=== PATIENT | female | born 1970 | race Caucasian/White ===

== ENCOUNTER → 2024-06-10 06:23 | Day surgery (SDC) | payer BC, SELFPAY | LOC: GI 06:23 | PROVIDERS: ATTENDING PHYSICIAN Internal Medicine Gastroenterology | DX: Z12.11 Encounter for screening for malignant neoplasm of colon (principal); D12.4 Benign neoplasm of descending colon; K63.5 Polyp of colon; K57.30 Diverticulosis of large intestine without perforation or abscess without bleeding; K64.8 Other hemorrhoids | CPT/HCPCS: 45385; 88305 ==

== ENCOUNTER 2025-01-10 14:24 | Day surgery (SDC) | payer BC, SELFPAY ==
[2025-01-10] VITALS (13 sets, daily range): BP systolic 5–125; BP diastolic 43–76; BMI 30.8
--- NOTE | 2025-01-10 09:22 | ED.GENMED ---
History of Present Illness
General
Chief Complaint: Abdominal Pain
Source: patient
Exam Limitations: none
Time Seen by Provider: 01/10/25 08:58
History of Present Illness
History of Present Illness:
54yoF with a history of hyperlipidemia and hypothyroidism presenting for evaluation of abdominal pain. Patient reports pain in her right lower quadrant for the past 4 days. Pain is described as a cramping sensation. She initially thought it was
gas pain although pain has been gradually worsening. The pain started to radiate to the right lower back today which prompted her to come to the ED. She has not taken anything [id number] for her symptoms. No history of similar pains in the
past. She also reports some dizziness with standing. No fevers, chills, dysuria, diarrhea, nausea, vomiting, chest pain, shortness of breath. Last bowel movement was about 3 days ago. No prior abdominal surgeries.
Phy Exam
General Physical Exam
General Presentation: well appearing and no apparent distress
General age: appears stated age
General Skin: warm and dry
General Habitus: normal
General Mental: alert
ENT Exam
ENT Exam: normocephalic
Cardiovascular Exam
Cardiovascular Exam: regular rate/rhythm
Pulmonary Exam
Pulmonary Exam: lungs clear, no respiratory distress, no rales, no crackles, no rhonchi and no wheezing
Gastrointestinal Exam
Gastrointestinal Exam: soft, non distended and other (+Focal tenderness in RLQ with rebound tenderness. Abdomen soft, non-distended. )
Neurological Exam
Neurological Exam: alert
Ary Coma Scale
Eye Opening: Spontaneous
Verbal Response: Oriented
Motor Response: Obeys Commands
GCS Total Score: 15
Skin Exam
Skin Exam: normal color and warm/dry
Psychiatric Exam
Psychiatric Exam: normal mood/affect
Course
Orders/Labs/Results
Orders:
Orders
01/10/25 09:21
0.9% Sodium Chloride 1000 ml [Nss] 1,000 ml IV BOLUS
01/10/25 09:22
CT Abd/pelvis W Iv Cont Urgent
Comment:
Reason For Exam: RLQ pain
01/10/25 09:31
Complete Blood Count/With Diff Urgent
Comprehensive Metabolic Panel Urgent
Lipase Urgent
01/10/25 10:01
Urinalysis Reflex To Culture Urgent
Date Specimen was Collected: 01/10/25
Time Specimen was Collected: 09:58
01/10/25 11:59
HYDROmorphone [Dilaudid] 0.25 mg IV PACU-Q5MPRN PRN
HYDROmorphone [Dilaudid] 0.5 mg IV PACU-Q5MPRN PRN
Ondansetron Injectable [Zofran] 4 mg IV PACU-ONCEPRN PRN
Prochlorperazine [Compazine] 5 mg IV PACU-ONCEPRN PRN
Notify MD As Directed
Notify physician if: for SDS patients with known or suspected sleep obstructive sleep apnea, monitor in the
PACU.
Notify MD for any apneic/desaturation episodes
O2 Therapy [RESP] Urgent
Titrate/Wean O2 to maintain O2 sat greater than (%): 92
Special Instructions: -Provide supplemental oxygen to achieve O2 sat of 92% or greater.
-After 15 min, may wean O2 and discontinue if patient is able to maintain O2 sat of 92%
or greater during recovery period.
If patient is a discharge home, without oxygen therapy, notify anestheiologist if
unable to maintain O2 SAT of 92% or greater on room air for MD clearance.
01/10/25 12:00
CefTRIAXone [Rocephin] 2,000 mg IV NOW STA
MetroNIDAZOLE 500 MG/100 ML [Flagyl 500 mg] 100 ml IV NOW
Normosol (Mult Electrolytes) [Normosol-R/Plasmalyte-A] 1,000 ml IV PER PROTOCOL
Piperacillin/Tazo 3.375 Gram [Zosyn] 3.375 gram in 50 ml IV Q6H
01/10/25 13:50
Bupivacaine 0.25%Pf/Epinephrin [Sensorcaine-Epi 0.25%-0.0005] 30 ml .ROUTE .STK-MED ONE
01/10/25 13:55
Fentanyl Citrate/Pf [Sublimaze] 100 mcg .ROUTE .STK-MED ONE
Lidocaine HCl/Pf [Xylocaine-Mpf 1% Vial] 50 mg .ROUTE .STK-MED ONE
Midazolam HCl [Versed] 2 mg .ROUTE .STK-MED ONE
Propofol [Diprivan] 20 ml .ROUTE .STK-MED
Rocuronium [place] [Rocuronium] 50 mg .ROUTE .STK-MED ONE
01/10/25 13:56
Dexamethasone Sod Phosphate [Decadron] 20 mg .ROUTE .STK-MED ONE
Ondansetron Injectable [Zofran] 4 mg .ROUTE .STK-MED ONE
Abnormal Lab Results
01/10/25
09:31
RBC 4.10 L 10^6/uL
(4.20-5.40)
MCH 31.7 H pg
(27.0-31.0)
Lymphocytes % 17.2 L %
(20.5-51.1)
01/10/25 09:31
01/10/25 09:31
Vital Signs
Initial and Last Documented VS:
Initial Vital Signs
Temp Pulse Resp BP Pulse Ox
98.8 F 75 18 125/76 97
01/10/25 08:38 01/10/25 08:38 01/10/25 08:38 01/10/25 08:38 01/10/25 08:38
Last Documented Vital Signs
Temp Pulse Resp BP Pulse Ox
98.8 F 75 18 125/76 97
01/10/25 08:38 01/10/25 08:38 01/10/25 14:00 01/10/25 08:38 01/10/25 08:38
MDM/Problems Addressed
Differential Diagnosis Includes:
54yoF here with cramping RLQ pain x 3-4 days. Now radiating to back today. No fevers. VSS. She is well-appearing in no acute distress. There is rebound tenderness on abdominal exam. Differential diagnosis includes but is not limited to:
Appendicitis, intra-abdominal abscess, ovarian pathology, kidney stone, musculoskeletal
Initial ED plan: Check abdominal labs, UA, and CT abdomen. IV fluid bolus.
*Critical Care Note
Total Time (30-74mins, 75-104mins- exclusive of procedures): Not Applicable
Update Note
Update Note:
CT shows acute appendicitis. Labs overall unremarkable including normal white count. UA bland without signs of infection. Case discussed with Dr. Dougherty and patient transferred to the OR for appendectomy.
ED Attending Note
-
Portions of this chart may have been created with voice recognition software.� Occasional wrong word or��sound alike� substitutions may have occurred due to the inherent limitations of voice recognition software.
Discharge Plan
Departure
Patient Disposition: Admit
Date of Disposition: 01/10/25
Time of Disposition: 11:43
Presentation/result/management discussed w/ accepting MD/DO: Dr. Dougherty
Discharge Problem:
Acute appendicitis
Interventions
Interventions:
*Risk Screen - Suicide Last Done: 01/10/25 08:38
*General Assessment Last Done: 01/10/25 08:38
*Neglect/Abuse Screening Last Done: 01/10/25 09:15
*ED- Fall Risk Assessment Last Done: 01/10/25 09:17
*ED COVID-19 Vaccine History Last Done: 01/10/25 09:20
*Nursing Disposition Last Done: 01/10/25 14:02
ZK-Khtscc-Mpdsfrrnpp Assessment Last Done: 01/10/25 09:15
Discharge Date and Time
Discharge Date/Time: 01/10/25 14:03
[2025-01-10] MEDS: NSS 1000 IV (09:32)
[2025-01-10 09:43] LABS: % Basophils 0.4 % (0-2); % Eosinophils 1.8 % (0-6); % Immature Granulocytes 0.3 % (0-0.5); % Lymphocytes 17.2 % (20.5-51.1); % Monocytes 7.1 % (1.7-9.3); % Neutrophils 73.2 % (42.2-75.2); Absolute Eosinophils 0.1 10^3/uL (0-0.7); Absolute Lymphocytes 1.3 10^3/uL (1.2-3.4); Absolute Monocytes 0.5 10^3/uL (0.1-0.6); Absolute Neutrophils 5.4 10^3/uL (1.4-6.5); Hematocrit 38.2 % (37.0-47.0); Mean Corpuscular Hgb 31.7 pg (27.0-31.0); Mean Corpuscular Volume 93.2 fL (81.0-99.0); Mean Platelet Volume 9.6 fL (7.4-10.4); Nucleated Red Blood Cells % 0 %; Platelet Count 229 10^3/uL (130-400); Red Cell Dist. Width 12.8 % (11.5-14.5); White Blood Cell Count 7.4 10^3/uL (4.8-10.8)
[2025-01-10 09:59] LABS: ALT (SGPT) 27 U/L (0-35); AST (SGOT) 21 U/L (14-36); Albumin 3.9 g/dl (3.5-5.0); Alkaline Phosphatase 61 U/L (38-126); Blood Urea Nitrogen 16 mg/dl (7-17); Calcium 9.6 mg/dl (8.4-10.2); Carbon Dioxide 28 mmol/L (22-30); Chloride 106 mmol/L (98-107); Estimated Creatinine Clearance 94 ml/min; Glucose 94 mg/dl (70-99); Lipase 125 U/L (23-300); Potassium 4.4 mmol/L (3.5-5.1); Sodium 141 mmol/L (135-145); Total Bilirubin 0.6 mg/dl (0.2-1.3); Total Protein 6.3 g/dl (6.3-8.2); eGFR > 60.00
[2025-01-10 10:16] LABS: Urine Albumin Negative (Neg - Trace); Urine Bilirubin Negative (Negative); Urine Character Clear (Clear); Urine Color Yellow; Urine Glucose Negative (Negative); Urine Ketone Negative (Negative); Urine Leukocyte Negative (Negative); Urine Nitrite Negative (Negative); Urine Occult Blood Negative (Negative); Urine Specific Gravity 1.015 (<1.030); Urine Urobilinogen Negative (Neg - 1+); Urine pH 6.5 (5.0-9.0)
--- NOTE | 2025-01-10 12:04 | CON.GS ---
Medical History
-
Chief Complaint: RLQ abdominal pain
History of Present Illness:
Patient is a 54 yo F with a PMH of obesity, HLD, and hypothyroidism who presents with approximately 4 days of crampy RLQ abdominal pain. Ms. Koch states that her symptoms began acutely on Thursday evening. She describes a crampy RLQ abdominal
pain which is persistent. Subtle radiation to her back again today. Symptoms have persisted and somewhat worsened prompting presentation to the ER. No fevers or chills. No nausea or vomiting. No alterations in GI function, though she states she
has been constipated for the past several days. She does continue to pass flatus. She denies any chronic GI issues. No family history notable for IBD or colon cancer. Most recent colonoscopy was in May 2024 and notable for diverticulosis,
three 8 mm polyps in sigmoid colon (biopsy hyperplastic), and one 5 mm polyp in the descending colon (biopsy tubular adenoma without dysplasia).
Past Medical History
Past Medical History: Hypercholesterolemia and Hypothyroidism
Past Surgical History: None
Social History
Tobacco: Non-Smoker
Alcohol: None
Drug: None
Personal:
Living: With Family
Family History
Family History: Reviewed & Noncontributory
Allergies / Home Medications
Allergy/AdvReac Type Severity Reaction Status Date / Time
Penicillins Allergy Unknown Verified 01/10/25 08:38
�Medication �Instructions �Recorded �Confirmed �Type
atorvastatin 20 mg tablet 20 mg PO DAILY 01/10/25 01/10/25 History
levothyroxine 175 mcg tablet 175 mcg PO DAILY Thyroid 01/10/25 01/10/25 History
(Euthyrox)
sertraline 100 mg tablet 150 mg PO DAILY 01/10/25 01/10/25 History
sumatriptan succinate 100 mg tablet 100 mg PO DAILYPRN PRN migraine 01/10/25 01/10/25 History
Review of Systems
-
A 10 point review of systems was completed, and was negative except as per HPI.
Physical Exam
Vital Signs
Temp Pulse Resp BP Pulse Ox
98.8 F 75 18 125/76 97
01/10/25 08:38 01/10/25 08:38 01/10/25 10:00 01/10/25 08:38 01/10/25 08:38
01/09/25 01/10/25 01/11/25
06:59 06:59 06:59
Actual Weight 89 kg
Body Mass Index (BMI) 30.8
Lab Results
01/10/25 09:31
01/10/25 09:31
WBC 7.4 10^3/uL (4.8-10.8) 01/10/25 09:31
Hgb 13.0 g/dL (12.0-16.0) 01/10/25 09:31
Hct 38.2 % (37.0-47.0) 01/10/25 09:31
Plt Count 229 10^3/uL (130-400) 01/10/25 09:31
Abs Immat Gran (auto) 0.0 10^3/uL (0-0.05) 01/10/25 09:31
Neutrophils % 73.2 % (42.2-75.2) 01/10/25 09:31
Physical Exam
General: Well Developed, Well Nourished and No Apparent Distress
HEENT: Normocephalic and Anicteric
Respiratory: Non Labored Respirations
Cardiac: Regular Rhythm
GI: Soft, Non Distended, Tender (RLQ), Obese and Other (Focally peritoneal in the RLQ, no diffuse peritonitis)
Musculoskeletal: No Edema
Skin: Warm and Dry
Neuro: Nonfocal/Grossly Intact
Data Reviewed
-
CT Scan: Image Personally Visualized and interpreted and Report Reviewed by me
Labs: Labs Reviewed by me
Assessment / Plan
-
Patient is a 54 yo F p/w acute appendicitis
The natural history and pathophysiology of appendicitis was discussed and reviewed. Anatomy was reviewed. Workup thus far including labs and CT scan imaging were reviewed. Options for management including medical management with antibiotics
versus surgical management with appendectomy were considered and discussed. The pros and cons of both approaches discussed. Specifically, we discussed failure of medical management and future episodes of appendicitis versus surgical risks. She
does appear to have a fair amount of inflammation and wall thickening at the base of her appendix. She is at somewhat increased risk for complications with medical management related to the presence of appendicoliths. Ms. Koch would like to
proceed with surgical management.
Plan for a laparoscopic possible open appendectomy. The procedure itself, as well as the risks, benefits, and alternatives was discussed. Specifically, we discussed the risks of bleeding, infection, injury to surrounding structures (bowel,
bladder), staple line leak, need for open bleeder. Typical postprocedural recovery was discussed. All questions and. Consent signed.
-- Laparoscopic appendectomy
-- NPO, IVF
-- Antibiotics: Zosyn (PCN allergy confirmed to be a rash as a child)
-- Admit postoperatively pending operative findings and recovery
[2025-01-10] MEDS: ZOSYN 50 IV ×3 (12:16→23:24)
--- NOTE | 2025-01-10 12:23 | W.SUR.PREOP ---
Pre-Operative Surgical Note
-
I have examined this patient prior to the performance of the scheduled procedure.
The patient's condition is unchanged from the time of the current History and
Physical and the patient is able to undergo the scheduled procedure.
--- NOTE | 2025-01-10 15:40 | W.IMMPOSTOP ---
Surgical Immed Post Op Note
-
Primary Surgeon: Ladonna
Assisting Surgeon: None
Pre-op Diagnosis: Acute appendicitis
Post-op Diagnosis: Acute appendicitis
Procedure Performed: Laparoscopic appendectomy
Anesthesia Type: General
Specimen / Cultures:
1. Appendix
Estimated Blood Loss: 11 cc
Complications: None
Operative Findings:
1. Severely inflamed and indurated appendix, no evidence of perforation, no spillage
2. Mesentery taken with Voyant, base with 45 mm purple load stapler x2 flush with cecum
3. Staple line intact no leakage with palpation
4. 19 Fr EVER into pelvis and operative field
[2025-01-10] MEDS: DILAUDID 0.5 MG IV ×3 (15:49→17:55)
[2025-01-10] MEDS: NORMOSOL-R/PLASMALYTE-A 1000 IV (16:40)
--- NOTE | 2025-01-10 17:15 | PTCARENOTE ---
Pt received from the PACU via bed. Transport was w/o incident. Pt is Awake/drowsy from anesthesia, although able to verbalize and make needs known. Lap sites to abd well approximated with surg. glue. Left abd Ben drain intact draining scant amount of
serosanguinous fluid. HRR, lungs are clear. Vss, Pt is afebrile. Pt and Pt's instructed on plan of care. Both Pt and verbalized understanding of instructions. Call holt is within reach.
[2025-01-10] MEDS: ZOLOFT 150 MG PO (21:34)
[2025-01-10] MEDS: LIPITOR 20 MG PO (21:34)
[2025-01-10] MEDS: TORADOL 10 MG IV (21:36)
[2025-01-10] MEDS: TYLENOL 650 MG PO (23:24)
[2025-01-11] MEDS: MYLICON 80 MG PO (01:51)
[2025-01-11] MEDS: NORMOSOL-R/PLASMALYTE-A 1000 IV ×3 (02:45→23:47)
[2025-01-11 03:00] VITALS: BP 100/47
[2025-01-11] MEDS: TYLENOL PO (05:21)
[2025-01-11] MEDS: SYNTHROID 175 MCG PO (05:21)
[2025-01-11] MEDS: ZOSYN 50 IV ×4 (05:22→23:47)
--- NOTE | 2025-01-11 07:20 | W.PN.GS2 ---
Today's Communication / Plan
-
-- Clears
-- Abx: Zosyn
-- Home meds
-- IVF for now, possible DC later this afternoon pending PO intake
-- DVT: Lovenox
-- Plan to monitor in hospital setting for today, earliest DC tomorrow pending diet, labs, and EVER outputs
Assessment / Plan
-
Patient is a 54 yo F POD#1 s/p laparoscopic appendectomy
AVSS
Labs pending
Post-op pain likely from continued inflammation around operative site and operative drain. Continue with abx. Clears for today.
-- Clears
-- Pain control: Tylenol, Toradol, Oxycodone
-- Abx: Zosyn
-- Home meds
-- IVF for now, possible DC later this afternoon pending PO intake
-- DVT: Lovenox
-- OOB/ambulate
-- Plan to monitor in hospital setting for today, earliest DC tomorrow pending diet, labs, and EVER outputs
Subjective Data
-
Date of Service: January 11, 2025
Reports lower abdominal soreness, no nausea or emesis, passing small amounts of flatus, no BM, no fevers, ambulating and voiding
Objective Data
-
Intake and Output
01/10/25 01/11/25 01/12/25
06:59 06:59 06:59
Intake Total 2360 / 2360
Output Total
Balance 2295 / 2295
Intake:
Oral fluids 960 / 960
IV fluids (Total) 1300 / 1300
Normosal 100 / 100
IV piggybacks 100 / 100
Output:
Drain Output (Total)
Left Lower Abdomen Milton-
Casiano
Other:
Number of approximated LARGE 1
amounts of urine
How many times incontinent 3
MODERATE amount urine
Vital Signs
Temp Pulse Resp BP Pulse Ox
98.2 F 52 17 100/47 94
01/11/25 03:00 01/11/25 03:00 01/11/25 03:00 01/11/25 03:00 01/11/25 03:00
Calcium 9.6 mg/dl (8.4-10.2) 01/10/25
Total Bilirubin 0.6 mg/dl (0.2-1.3) 01/10/25
AST 21 U/L (14-36) 01/10/25
ALT 27 U/L (0-35) 01/10/25
Alkaline Phosphatase 61 U/L (38-126) 01/10/25
Total Protein 6.3 g/dl (6.3-8.2) 01/10/25:
Albumin 3.9 g/dl (3.5-5.0) 01/10/25:
Physical Exam
-
Gen: NAD
Abd: soft, mild tenderness, ND, non-peritoneal, incisions - no erythema, ecchymosis or drainage, EVER serosang, non-bilious or feculent
[2025-01-11 08:00] VITALS: BP 109/64
[2025-01-11] MEDS: TORADOL 10 MG IV (08:13)
[2025-01-11] MEDS: TYLENOL 650 MG PO ×5 (08:13→23:46)
[2025-01-11 08:28] LABS: Hematocrit 36.2 % (37.0-47.0); Hemoglobin 12.4 g/dL (12.0-16.0); Mean Corp Hgb Conc. 34.3 g/dL (33.0-37.0); Mean Corpuscular Hgb 31.7 pg (27.0-31.0); Mean Corpuscular Volume 92.6 fL (81.0-99.0); Mean Platelet Volume 10.1 fL (7.4-10.4); Platelet Count 229 10^3/uL (130-400); Red Blood Cell Count 3.91 10^6/uL (4.20-5.40); Red Cell Dist. Width 12.7 % (11.5-14.5); White Blood Cell Count 9.2 10^3/uL (4.8-10.8)
[2025-01-11 09:10] LABS: Blood Urea Nitrogen 13 mg/dl (7-17); Calcium 8.9 mg/dl (8.4-10.2); Carbon Dioxide 24 mmol/L (22-30); Chloride 105 mmol/L (98-107); Estimated Creatinine Clearance 94 ml/min; Glucose 106 mg/dl (70-99); Potassium 4.6 mmol/L (3.5-5.1); Sodium 140 mmol/L (135-145); eGFR > 60.00
--- NOTE | 2025-01-11 12:06 | CM ---
Met with patient to obtain information for assessment. Patient stated that she lives with her spouse in a two story home with one step to enter. She described herself as independent with her ADLs, personal care, dressing and bathing. She can cook,
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 She drives and can transport herself to all of her appointments and do her own shopping. Patient has never had VN. She has never been to a SNF.
Patient has a prescription plan and uses, [facility] for all of her medications.
Her PCP is, De Duron.
Patient stated that her son and spouse will be home when she is discharged and she does not antcipate any needs from .
Plan: Case management will continue to follow and assist with discharge planning. Home no needs.
[2025-01-11 12:25] VITALS: BP 108/55
[2025-01-11 17:03] VITALS: BP 102/47
[2025-01-11] MEDS: LOVENOX 40 MG SC (18:41)
[2025-01-11] MEDS: LIPITOR 20 MG PO (21:41)
[2025-01-11] MEDS: ZOLOFT 150 MG PO (21:41)
[2025-01-11 23:00] VITALS: BP 100/69
--- NOTE | 2025-01-12 03:39 | DOWNTIME ---
There was a [employer] [facility] Client Launch Operator Downtime on 01/12/2025 from 0200 to 01/13/2024 at 0318 . Downtime documentation of patient's care, including medication administrations, has been reconciled in the electronic record per guidelines. Refer to the
patient's paper chart under the miscellaneous tab to see printed paper medication records and downtime forms.
[2025-01-12] MEDS: TYLENOL 650 MG PO ×4 (04:58→16:34)
[2025-01-12] MEDS: ZOSYN 50 IV ×2 (05:28→13:15)
[2025-01-12] MEDS: SYNTHROID 175 MCG PO (05:28)
[2025-01-12 07:00] VITALS: BP 106/53
--- NOTE | 2025-01-12 07:44 | W.PN.GS2 ---
Addendum entered and electronically signed by Hugo Dougherty MD 01/12/25 16:57:
Tolerating a diet. Passing flatus. EVER outputs re-assuring. OK for DC with EVER drain. Will coordinate outpatient follow-up.
Original Note:
Today's Communication / Plan
-
-- LRD
-- Abx: Zosyn, plan for total 7 days (Augmentin on DC)
-- Miralax
Assessment / Plan
-
Patient is a 54 yo F POD#2 s/p laparoscopic appendectomy
AVSS
Overall improved. Continue with abx. LRD and Miralax
-- LRD
-- Miralax
-- Pain control: Tylenol, Toradol, Oxycodone
-- Abx: Zosyn, plan for total 7 days (Augmentin on DC)
-- Home meds
-- HLIV
-- DVT: Lovenox
-- OOB/ambulate
-- Plan to monitor in hospital setting for today
Subjective Data
-
Date of Service: January 12, 2025
No complaints - feels well and improved. No nausea or emesis. Passing flatus, no BM. No fevers. Ambulating, voiding.
Objective Data
-
Intake and Output
01/11/25 01/12/25 01/13/25
06:59 06:59 06:59
Intake Total 2360 / 2360 3390 / 3390
Output Total 65 / 65 100 / 100
Balance 2295 / 2295 3290 / 3290
Intake:
Oral fluids 960 / 960 2040 / 2040
IV fluids (Total) 1300 / 1300 1200 / 1200
Normosal 100 / 100
IV piggybacks 100 / 100 150 / 150
Output:
Drain Output (Total) 65 / 65 100 / 100
Left Lower Abdomen [place]-
Casiano
Other:
Number of approximated LARGE 1 3
amounts of urine
How many times incontinent 3 2
MODERATE amount urine
Vital Signs
Temp Pulse Resp BP Pulse Ox
98.1 F 70 16 106/53 95
01/12/25 07:00 01/12/25 07:00 01/12/25 07:00 01/12/25 07:00 01/12/25 07:00
Lab Results
01/11/25 07:24
01/11/25 07:24
Calcium 8.9 mg/dl (8.4-10.2) 01/11/25 07:24
Total Bilirubin 0.6 mg/dl (0.2-1.3) 01/10/25 09:31
AST 21 U/L (14-36) 01/10/25 09:31
ALT 27 U/L (0-35) 01/10/25 09:31
Alkaline Phosphatase 61 U/L (38-126) 01/10/25 09:31
Total Protein 6.3 g/dl (6.3-8.2) 01/10/25 09:31
Albumin 3.9 g/dl (3.5-5.0) 01/10/25 09:31
Physical Exam
-
Gen: NAD
Abd: soft, minimal tenderness (improved), ND, non-peritoneal, incisions c/d/i - mild ecchymosis at umbilicus, no erythema or drainage, EVER serosang, non-bilious, non-feculent
Patient has a liriano catheter: No
Patient has a central line: No
[2025-01-12] MEDS: MIRALAX 17 GRAMS PO (08:44)
[2025-01-12] MEDS: TORADOL 10 MG IV (11:03)
--- NOTE | 2025-01-12 11:24 | CM ---
CM following re: discharge planning.
Reviewed pt's chart, met with pt.
Pt is POD#2 s/p laparoscopic appendectomy.
Pt reports she lives with and a son with his family in a 2SH and pt described herself as independent in all areas [employer]ANDARIN SPEAKING NANNY.
D/C plan: home with anticipated no needs. to transport at discharge.
CM will follow with discharge plan updates as needed.
[2025-01-12 15:19] VITALS: BP 100/64
== END 2025-01-12 18:20 | disposition home or self-care (01) ==
LOC: SDS 14:24
PROVIDERS: Physician Assistant; ATTENDING PHYSICIAN Surgery; EMERGENCY PHYSICIAN Emergency Medicine; FAMILY PHYSICIAN Family Medicine
DX: K35.80 Unspecified acute appendicitis (principal); K38.2 Diverticulum of appendix; E66.9 Obesity, unspecified
CPT/HCPCS: 44970; 88304; 74177; 80048; 80053; 81003; 83690; 85025; 85027; 96360; 96361; 99285; C1729; C1776; Q9967